=== PATIENT | male | born 1985 | race Two or more races ===

== ENCOUNTER 2025-05-30 18:04 | Emergency (ER) | payer OTHER ==
[~2025-05-30] VITALS: Ht 177.8 cm; Wt 96.2 kg
[2025-05-30] MEDS ORDERED: MOUNJARO5 MG/0.5 M SQ (19:00)
[2025-05-30 19:01] VITALS: BP 142/94; O2SAT 100
[2025-05-30] MEDS ORDERED: KETOROLAC TROMETHAMINE 10 MG TABLET PO PRN (20:00)
[2025-05-30 23:13] LABS: URINE APPEARANCE Clear; URINE BILIRRUBIN Negative (NEGATIVE); URINE BLOOD Negative; URINE COLOR Yellow; URINE GLUCOSE Negative (NEGATIVE); URINE KETONE Trace (NEGATIVE); URINE LEUKOCYTE Negative; URINE NITRATE Negative; URINE PROTEIN Negative (NEGATIVE); URINE UROBILINOGEN 1.0 E.U./dl
[2025-05-30 23:14] LABS: BASO % 0.5 % (0.1-1.2); EOS # 0.17 (0.04-0.54); EOS % 2.3 % (0.7-7.0); LYMPH # 2.96 (1.18-3.74); LYMPH % 40.5 % (19.3-53.1); MEAN PLATELET VOLUME 9.70 fl (9.4-12.4); MONO # 0.50 (0.24-0.82); MONO % 6.8 % (4.7-12.5); NEUT # 3.62 (1.56-6.13); NEUT % 49.6 % (34.0-71.1); RED CELL DISTRIBUTION WIDTH 12.2 % (11.6-14.4)
[2025-05-30 23:16] LABS: URINE BACTERIA 4.8 uL (0.0-1933); URINE EPITHELIAL CELLS 1.6 uL (0.0-38.8); URINE RBC 4.9 uL (0.0-20.8)
[2025-05-30 23:18] LABS: URINE CAST 0.00 uL (0.0-1.40); URINE WBC 0.3 uL (0.0-23.2)
[2025-05-30 23:28] LABS: BUN CREA RATIO 22.0 (7.0-25.0); CREATININE SERUM 1.01 mg/dL (0.70-1.30); GFR 81.4; GLUCOSE FASTING 112.0 mg/dL (65-100); OSMOLALITY SERUM 289.0 MOSM/KG (275-295)
[2025-05-30 23:42] LABS: COVID-19 AG NEGATIVE (NEGATIVE)
== END 2025-05-31 00:25 | disposition home or self-care (01) ==
LOC: ER 18:14
PROVIDERS: Emergency Medicine
DX: N30.80 Other cystitis without hematuria (principal); E11.9 Type 2 diabetes mellitus without complications; Z79.4 Long term (current) use of insulin